=== PATIENT | female | born 2000 | race African-American/Black ===

== ENCOUNTER 2020-06-30 04:33 | Observation (INO) | payer BC, SELFPAY ==
[2020-06-30] VITALS (13 sets, daily range): BP systolic 107–164; BP diastolic 70–114; PULSE 101–125; RESP 17–28; TEMP 36.6–36.7; O2SAT 94–100; BMI 46.5
--- NOTE | ~2020-06-30 | XR_ITS ---
EXAMINATION: XR chest 1V portable DATE: 06/30/2020 04:58 INDICATION: Chest pain and shortness of breath. TECHNIQUE: frontal view of the chest was obtained. COMPARISON: None FINDINGS: The lungs are clear with no focal airspace opacities, pulmonary edema, pleural effusion or pneumothor ax. The cardiomediastinal silhouette is normal. Visualized bones and soft tissues are unremarkable. IMPRESSION: 1. No acute cardiopulmonary disease. Reviewed, dictated and finalized at location A.
--- NOTE | 2020-06-30 04:42 | ED.SOB ---
HPI - SOB/Dyspnea General Chief Complaint: Shortness of Breath/Dyspnea <Roberto Deal MD - Last Filed: 06/30/20 19:03> Stated Complaint: Shortness of breath <Roberto Deal MD - Last Filed: 06/30/20 19:03> Time Seen by Provider: 06/30/20 04:38 <Roberto Deal MD - Last Filed: 06/30/20 19:03> History of Present Illness HPI Narrative: Shortness of breath since last night. Feels like there is air trapped in her chest. This is associated with substernal chest pain with inspiration. She has asthma, bbut says this is not typical of her asthma. No fever. <Roberto Deal MD - Last Filed: 06/30/20 19:03> Related Data Home Medications: Home Medications Medication Instructions Recorded Confirmed albuterol sulfate 4 puff INHALATION Q4H PRN 06/30/20 06/30/20 norgestimate-ethinyl estradiol 1 tablet PO DAILY 06/30/20 06/30/20 [Tri-Sprintec (28)] <Roberto Deal MD - Last Filed: 06/30/20 19:03> Allergies/Adverse Reactions: Allergies Allergy/AdvReac Type Severity Reaction Status Date / Time Fish Containing Products Allergy Hives Verified 06/30/20 11:26 salmon oil Allergy Swelling Verified 06/30/20 05:34 <Roberto Deal MD - Last Filed: 06/30/20 19:03> Review of Systems Review of Systems: All systems reviewed & are unremarkable except as noted in HPI and below <Roberto Deal MD - Last Filed: 06/30/20 19:03> Constitutional: Constitutional: Denies chills and Denies fever(s) <Roberto Deal MD - Last Filed: 06/30/20 19:03> ENT: Denies sore throat <Roberto Deal MD - Last Filed: 06/30/20 19:03> Cardiovascular: Cardiovascular: Reports chest pain <Roberto Deal MD - Last Filed: 06/30/20 19:03> Respiratory: Respiratory: Reports dyspnea and Reports wheezing <Roberto Deal MD - Last Filed: 06/30/20 19:03> Gastrointestinal: Gastrointestinal: Denies abdominal pain and Denies nausea <Roberto Deal MD - Last Filed: 06/30/20 19:03> Musculoskeletal: Musculoskeletal: Denies back pain <Roberto Deal MD - Last Filed: 06/30/20 19:03> Neurologic: Denies weakness <Roberto Deal MD - Last Filed: 06/30/20 19:03> [facility] Past Medical History Medical History: Medical History (Updated 06/30/20 @ 13:04 by Felicitas Condon NP) Asthma <Roberto Deal MD - Last Filed: 06/30/20 19:03> Surgical History Surgical History: Surgical History (Updated 06/30/20 @ 13:01 by Felicitas Condon NP) [place] teeth extracted <Roberto Deal MD - Last Filed: 06/30/20 19:03> Social History Social History: Social History (Updated 06/30/20 @ 13:03 by Felicitas Condon NP) Social History: she is taking classes at [employer] for psychology degree. She has her own place. 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 She is single and has no children. She is a lifelong nonsmoker. She does not use marijuana or illicit drugs. She does not use alcohol either. Her mother is her durable power real estate attorney for healthcare. The patient wishes to be a full code. Her mother is Beatriz sutton. Smoking status: Never smoker Alcohol intake: former Substance use: never Gender identity (if verbalized by the patient): Female Spiritual care concerns: No <Roberto Deal MD - Last Filed: 06/30/20 19:03> Exam Const: General: alert <Roberto Deal MD - Last Filed: 06/30/20 19:03> Orientation/consciousness: patient oriented x3 <Roberto Deal MD - Last Filed: 06/30/20 19:03> Other: Mild distress <Roberto Deal MD - Last Filed: 06/30/20 19:03> HENMT: Head: normal to inspection <Roberto Deal MD - Last Filed: 06/30/20 19:03> Chest: Chest palpation & inspection: normal inspection of the chest <Roberto Deal MD - Last Filed: 06/30/20 19:03> Resp: Effort & Inspection: labored and tachypneic <Roberto Deal MD - Last Filed: 06/18
[2020-06-30] MEDS: methylPREDNISolone SOD SUCC 125 MG VIAL IV PUSH ×2 (04:51→07:46)
[2020-06-30] MEDS: IPRATROPIUM BR 0.02% INH SOLN 0.5 MG/2.5 ML VIAL 1 MG INHALATION (04:54)
[2020-06-30] MEDS: ALBUTEROL SULFATE NEB 2.5 MG/0.5 ML INH 10 MG INHALATION ×2 (04:54→06:25)
[2020-06-30] MEDS: MAGNESIUM SULF 2 GM/WATER 50ML 2 GM/50 ML BAG IVPB (05:03)
[2020-06-30 06:32] LABS: Basophils Absolute Auto 0.1 K/mm3 (0.0-0.1); Basophils Percent Auto 0.6 % (0.2-1.2); Eosinophils Absolute Auto 0.5 K/mm3 (0-0.3); Eosinophils Percent Auto 6.9 % (0-4.4); Hematocrit 43.6 % (37.0-47.0); Hemoglobin 14.3 g/dL (12.0-15.0); Immature Granulocyte Absolute 0.02 K/mm3 (0.00-0.031); Immature Granulocyte Percent A 0.3 % (0-0.5); Lymphocytes Absolute Auto 3.76 K/mm3 (0.9-3.2); Lymphocytes Percent Auto 48.8 % (18.3-44.2); Mean Corpuscular HGB Conc 32.8 g/dl (32-36); Mean Corpuscular Hemoglobin 27.3 pg (26-34); Mean Corpuscular Volume 83.2 fl (80-100); Mean Platelet Volume 10.1 fl (7.4-10.4); Monocytes Absolute Auto 0.5 K/mm3 (0.1-0.6); Monocytes Percent Auto 6.1 % (2.6-8.5); Neutrophils Absolute Auto 2.9 K/mm3 (1.3-6.7); Neutrophils Percent Auto 37.3 % (45.5-73.1); Platelet Count Result 332 k/mm3 (150-375); Red Blood Count 5.24 M/mm3 (4.2-5.4); Red Cell Distribution Width 14.5 % (11.5-14.5); White Blood Count 7.7 K/mm3 (4.5-10.0)
[2020-06-30] MEDS: SODIUM CHLORIDE 0.9% IV 1,000 ML 999 ML IV CONT (06:34)
[2020-06-30 06:43] LABS: Anion Gap 9 mmol/L (8-16); Blood Urea Nitrogen 11 mg/dL (7-17); Carbon Dioxide 25 mmol/L (22-30); Chloride 105 mmol/L (98-107); Estimated Glomerular Filt Rate > 60; Glucose 107 mg/dL (65-105); Sodium 139 mmol/L (137-145)
--- NOTE | 2020-06-30 11:10 | ADMGEN ---
This patient, Shamir Park, was admitted to [facility] Surg Room 311-01. Patient/family oriented to hospital policies and general routines including ID bracelet, bed and alarms, visiting hours, pain management, procedures, bathroom and other care routines, personal items, smoking policy, room service/diet, and visiting hours. Valuables list has been completed. Information on how to activate the Rapid Response Team has been discussed. Patient/Family are encouraged to report perceived risks to care and to ask questions if they do not understand what they are told or what they should do.
--- NOTE | 2020-06-30 12:40 | PM.IMHP ---
H&P: HPI History of Present Illness Date/Time: 06/30/20 12:40 Chief complaint: asthma exacerbation Narrative: Shamir Park is a 20 year old female Who has a past medical history of asthma. the patient uses inhalers at home. Her asthma is triggered by weather, stress, and the environment. The patient stated she woke up this morning with shortness of breath. She felt like she was wheezing. She used her inhaler but it did help. She is also having a lot of acid reflux as well. She said she has never been hospitalized for her asthma in the past. Since is been raining a lot she has been more short of breath.She stated that she felt that she had airtrapping. She did have a nebulizer treatment in the emergency room, Solu-Medrol, and IV magnesium. She stated that she is feeling much better. she denies any fever or chills. No nausea vomiting or diarrhea. Her chest x-ray was negative. She does complain of having some acid reflux. Date of service is 06/30/2020. It took me approximately 35 minutes to review her chart and discussed her plan of care. Review of Systems Review of Systems: All systems reviewed & are unremarkable except as noted in HPI and below Constitutional: Constitutional: Reports as per HPI and Reports no additional constitutional complaints Eyes: Eyes: Reports as per HPI and Reports no additional eye complaints ENT: Reports system reviewed and no additional complaints, except as documented and Reports Normal hearing present Cardiovascular: Cardiovascular: Reports no additional cardiovascular complaints Respiratory: Respiratory: Reports no additional respiratory complaints and Reports no additional respiratory complaints Gastrointestinal: Gastrointestinal: Reports as per HPI and Reports no additional gastrointestinal complaints Musculoskeletal: Musculoskeletal: Reports no additional musculoskeletal complaints Integumentary/Breasts: Skin/Breast: Reports system reviewed and no additional complaints, except as docu and Reports as per HPI Neurologic: Reports system reviewed and no additional complaints, except as documented, Reports as per HPI and Reports Normal hearing present Psychiatric: Psychiatric: Reports no additional psychiatric complaints and Reports as per HPI Endocrine: Endocrine: Reports no additional endocrine complaints Hematologic/Lymphatic: Hematologic/Lymphatic: Reports no additional hematologic/lymphatic complaints Allergic/Immunologic: Allergic/Immunologic: Reports no additional allergic/immunologic complaints [facility] Past Medical History Medical History (Updated 06/30/20 @ 13:04 by Felicitas Condon NP) Asthma Surgical History Surgical History (Updated 06/30/20 @ 13:01 by Felicitas Condon NP) [place] teeth extracted Social History Social History (Updated 06/30/20 @ 13:03 by Felicitas Condon NP) Social History: she is taking classes at [employer] for psychology degree. She has her own place. 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 She is a lifelong nonsmoker. She does not use marijuana or illicit drugs. She does not use alcohol either. Her mother is her durable power scoop driver for healthcare. The patient wishes to be a full code. Her mother is Beatriz sutton. Smoking status: Never smoker Alcohol intake: former Substance use: never Gender identity (if verbalized by the patient): Female Spiritual care concerns: No Meds Home Medications and Allergies Home Medications Medication Instructions Recorded Confirmed Type albuterol sulfate 4 puff INHALATION Q4H PRN 06/30/20 06/30/20 History norgestimate-ethinyl estradiol 1 tablet PO DAILY 06/30/20 06/30/20 History [Tri-Sprintec (28)] prednisone 60 mg PO DAILY 4 Days #12 tablet 06/30/20 Rx Allergies Allergy/AdvReac Type Severity Reaction Status Date / Time Fish Containing Products Allergy Hives Verified 06/30/20 11:26 s
[2020-06-30] MEDS: IPRATROPIUM BR 0.02% INH SOLN 0.5 MG/2.5 ML VIAL INHALATION ×2 (13:39→20:04)
[2020-06-30] MEDS: methylPREDNISolone SOD SUCC 125 MG VIAL 80 MG IV PUSH ×2 (17:52→23:45)
[2020-06-30] MEDS: FAMOTIDINE 20 MG TABLET PO (20:17)
[2020-07-01] VITALS (7 sets, daily range): BP systolic 104–113; BP diastolic 64–69; PULSE 80–114; RESP 16–20; TEMP 36.2–36.3; O2SAT 96–98
[2020-07-01] MEDS: IPRATROPIUM BR 0.02% INH SOLN 0.5 MG/2.5 ML VIAL INHALATION ×2 (03:22→08:56)
[2020-07-01 05:55] LABS: Basophils Percent Auto 0.2 % (0.2-1.2); Hematocrit 42.1 % (37.0-47.0); Hemoglobin 13.9 g/dL (12.0-15.0); Immature Granulocyte Absolute 0.06 K/mm3 (0.00-0.031); Immature Granulocyte Percent A 0.5 % (0-0.5); Lymphocytes Percent Auto 13.9 % (18.3-44.2); Mean Corpuscular Hemoglobin 27.8 pg (26-34); Mean Corpuscular Volume 84.2 fl (80-100); Mean Platelet Volume 9.8 fl (7.4-10.4); Monocytes Absolute Auto 0.3 K/mm3 (0.1-0.6); Monocytes Percent Auto 1.9 % (2.6-8.5); Neutrophils Absolute Auto 10.8 K/mm3 (1.3-6.7); Neutrophils Percent Auto 83.5 % (45.5-73.1); Platelet Count Result 322 k/mm3 (150-375); Red Cell Distribution Width 15.1 % (11.5-14.5)
[2020-07-01] MEDS: methylPREDNISolone SOD SUCC 125 MG VIAL 80 MG IV PUSH ×2 (05:56→12:50)
[2020-07-01 06:19] LABS: Anion Gap 8 mmol/L (8-16); Blood Urea Nitrogen 10 mg/dL (7-17); Calcium 9.4 mg/dL (8.4-10.2); Carbon Dioxide 21 mmol/L (22-30); Chloride 107 mmol/L (98-107); Estimated CRCL calculation 168 ml/min; Estimated Glomerular Filt Rate > 60; Glucose 147 mg/dL (65-105); Potassium 4.2 mmol/L (3.4-5.0); Sodium 136 mmol/L (137-145)
[2020-07-01] MEDS: FAMOTIDINE 20 MG TABLET PO (08:25)
--- NOTE | 2020-07-01 12:42 | PM.DS ---
DS: Admitting Diagnosis Admitting Diagnosis Admitting Diagnosis: asthma exacerbation DS: Discharge Diagnosis Discharge Diagnosis (1) Asthma with exacerbation: Qualifiers: Asthma persistence: intermittent Asthma severity: mild Qualified Code(s): J45.21 - Mild intermittent asthma with (acute) exacerbation Code(s): J45.901 - Unspecified asthma with (acute) exacerbation Status: Acute Assessment and Plan: Typically uses albuterol inhaler 2 times per week. She was moving this week and was exposed to a lot of dust and irritants and she believes this is what triggered her increased SOB and wheezing. She was given nebulized albuterol, IV solumedrol and IV magnesium. She was quickly weaned from 2L O2 to room air. She will continue a PO Prednisone taper as an outpatient. I did not feel that she required an inhaled corticosteroid at this time as her symptoms are intermittent but this should be monitored by PCP and she was instructed to follow up in 1 week. She may benefit from referral to emergency doctor or welder setter electron beam machine at discretion of PCP. (2) Tachycardia: Code(s): R00.0 - Tachycardia, unspecified Status: Acute Assessment and Plan: [place] to be secondary to nebulized albuterol treatments. She remained asymptomatic and had no signs or symptoms of infection. She was transitioned to xopenex and she remained mildly tachycardic but improved. (3) GERD with stricture: Code(s): K21.9 - Gastro-esophageal reflux disease without esophagitis; K22.2 - Esophageal obstruction Status: Acute Assessment and Plan: We discussed lifestyle and dietary changes to alleviate symptoms. She was given PO Pepcid. DS: Summary Hospital Course Reason for hospitalization: Shortness of breath Hospital Course: Date of admission: 06/30/2020 Date of discharge: 07/01/2020 Shamir Park is a 20 year old female with a history of mild intermittent asthma who presented to the emergency department on 06/30/2020 with complaints of shortness of breath, chest tightness, and wheezing. She used her albuterol inhaler with no relief. At presentation, she was tachypneic and tachycardic, WBC 7.7, and CXR showed no acute cardiopulmonary disease. In the ED, she was given nebulized albuterol, IV steroids, and IV magnesium. She was admitted to the hospitalist service for further evaluation and management. She continued receiving nebulizer treatments and steroids. Upon my evaluation, she was feeling significantly improved and had no shortness of breath. Her lungs were clear to auscultation and she did not have any wheezing. She was anxious to return home. She was transitioned to PO prednisone which she will continue as an outpatient. She did have tachycardia which was felt to be secondary to albuterol and she developed very mild leukocytosis which was felt to be secondary to steroids. She had no evidence of infection and was feeling well. Given her overall improvement and improved lung exam, she was felt to no longer require inpatient care. We discussed worrisome signs and symptoms for which to return and importance of proper follow up. She was discharged home in hemodynamically stable condition on 07/01/2020. Status at Discharge Functional status at discharge: independent ambulation Overall status at discharge: patient is back to baseline Time Spent with Patient Time attestation: Total time spent providing and/or coordinating discharge services:42 minutes Time spent: Greater than 30 minutes Exam Narrative: Exam Narrative: Ms. Park is a well-nourished 20-year-old female who is lying supine in bed. She appears comfortable and is in no acute respiratory distress. HR 86, BP 104/64, R 16 T 97.4?, 98% on room air Neuro: awake, alert and oriented x4, speech clear, no focal neuro deficits noted HEENMT: normocephalic, atraumatic, EOMI, sclerae anicteric, moist oral mucosa, tongue midline, nares patent Neck: supple, no lymphadenopathy
[2020-07-01] MEDS: ACETAMINOPHEN 325 MG TABLET 650 MG PO (14:23)
== END 2020-07-01 15:35 | disposition home or self-care (01) ==
LOC: ANHED 08:19 → ANH3MEDSUR 09:44
PROVIDERS: Emergency Medicine; Nurse Practitioner; Admitting Provider Family Medicine; Emergency Provider Emergency Medicine; Visit Provider Physician Assistant
DX: J45.21 Mild intermittent asthma with (acute) exacerbation (principal); K21.9 Gastro-esophageal reflux disease without esophagitis; K22.2 Esophageal obstruction; R00.0 Tachycardia, unspecified
CPT/HCPCS: 36415; 71045; 80048; 85025; 94640; 96361; 96365; 96374; 96375; 96376; 99285; A9270; G0378; G0379; J2930; J3475; J7030

== ENCOUNTER 2021-07-25 03:04 | Emergency (ER) | payer BC, SELFPAY ==
[2021-07-25] VITALS (7 sets, daily range): BP systolic 125–134; BP diastolic 82–92; PULSE 83–100; RESP 14–22; TEMP 36.6; O2SAT 98–99
--- NOTE | ~2021-07-25 | XR_ITS ---
EXAMINATION: XR chest 1V portable DATE: 07/25/2021 04:02 INDICATION: Cough. TECHNIQUE: A single frontal view of the chest was obtained. COMPARISON: Chest single view 06/30/2020 FINDINGS: The chest demonstrates clear lungs without pneumonia, pleural effusion, or pneumothorax. Th e heart size is normal. IMPRESSION: 1. No acute cardiopulmonary disease. Reviewed, dictated and finalized at location A.
--- NOTE | 2021-07-25 03:15 | ED.ASTHMA ---
HPI - Asthma General Chief Complaint: Asthma Stated Complaint: asthma attack Time Seen by Provider: 07/25/21 03:05 Source: RN notes reviewed History of Present Illness HPI Narrative: Patient presents to emergency department from home for asthma. Patient states she awoke feeling short of breath this evening she states that she has had wheezing throughout the bilateral lung maloney states she has a history of asthma and felt fine prior to going to bed tonight she states she ran out of her inhaler at home she denies any fevers or chills chest pain abdominal pain nausea vomiting or any other symptom Related Data Home Medications Medication Instructions Recorded Confirmed albuterol sulfate 4 puff INHALATION Q4H PRN 06/30/20 06/30/20 norgestimate-ethinyl estradiol 1 tablet PO DAILY 06/30/20 06/30/20 [Tri-Sprintec (28)] Allergies Allergy/AdvReac Type Severity Reaction Status Date / Time Fish Containing Products Allergy Hives Verified 07/25/21 04:27 salmon oil Allergy Swelling Verified 07/25/21 04:27 Review of Systems Review of Systems: Gen.: Denies fevers or chills ENT: Denies congestion Respiratory: See HPI CV: Denies chest pain or palpitations GI: Denies abdominal pain nausea, emesis or diarrhea Musculoskeletal: Denies back pain or muscle pain Neuro: Denies numbness, tingling, weakness or focal weakness Skin: Denies rash Except as documented, all other systems reviewed and negative [facility] Past Medical History Medical History Asthma Surgical History Surgical History (Updated 06/30/20 @ 13:01 by Felicitas Condon NP) [place] teeth extracted Social History Social History Social History: she is taking classes at [employer] for psychology degree. She has her own place. 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 She is a lifelong nonsmoker. She does not use marijuana or illicit drugs. She does not use alcohol either. Her mother is her durable power attorney lawyer for healthcare. The patient wishes to be a full code. Her mother is Beatriz sutton. Smoking status: Never smoker Alcohol intake: former Substance use: never Gender identity (if verbalized by the patient): Female Spiritual care concerns: No Exam Narrative: APPEARANCE: Mild respiratory distress nontoxic, resting in bed HEENT: Normocephalic, atraumatic OMM RESPIRATORY: Mild respiratory distress wheezing throughout the bilateral lung maloney with decreased breath sounds in the bases no rhonchi CARDIOVASCULAR: Regular rate and rhythm without murmurs rubs or gallops. ABDOMINAL: Soft, nontender, nondistended, no rebound or guarding MUSCULOSKELETAl: Moves all extremities. No clubbing, cyanosis or edema. Bilateral calves soft and nontender NEURO: Awake and alert. Following commands, speech normal, no focal deficits SKIN:: Warm, dry. Normal Color PSYCHIATRIC: Normal affect/mood, Course Course Emergency Course: Patient feeling much better following breathing treatments. Repeat lung exam clear to auscultation bilaterally Discussed with patient results of workup and diagnosis. Discussed need for follow-up with primary care, proper use of medication, and reasons to return to the emergency department. Patient understands and agrees to current treatment plan Vital Signs Vital signs: Vital Signs Temperature 97.9 F 07/25/21 03:08 Pulse Rate 89 07/25/21 03:08 Respiratory Rate 20 07/25/21 03:08 Blood Pressure 134/92 H 07/25/21 03:08 Pulse Oximetry 99 07/25/21 03:08 Temperature 97.9 F 07/25/21 03:08 Pulse Rate 87 07/25/21 04:19 Respiratory Rate 18 07/25/21 04:19 Blood Pressure 134/92 H 07/25/21 03:08 Pulse Oximetry 98 07/25/21 03:55 MDM - Asthma Imaging Data Attestation: I personally reviewed and interpreted this imaging study as foll
[2021-07-25] MEDS: IPRATROPIUM BR 0.02% INH SOLN 0.5 MG/2.5 ML VIAL INHALATION ×2 (03:28→04:10)
[2021-07-25] MEDS: ALBUTEROL SULFATE NEB 2.5 MG/0.5 ML INH 5 MG INHALATION ×2 (03:28→04:10)
[2021-07-25] MEDS: predniSONE 20 MG TABLET 60 MG PO (03:53)
== END 2021-07-25 04:48 | disposition home or self-care (01) ==
PROVIDERS: Emergency Provider Emergency Medicine
DX: J45.901 Unspecified asthma with (acute) exacerbation (principal)
CPT/HCPCS: 71045; 94640; 99284; J7512

== ENCOUNTER 2021-10-27 15:20 | Emergency (ER) | payer BC, SELFPAY ==
[2021-10-27 15:33] VITALS: BP 147/90; PULSE 87; RESP 17; TEMP 36.1; O2SAT 100
--- NOTE | 2021-10-27 16:53 | PC.NURSE ---
pt leaving at this time. pt was triaged. will return if symptoms worsen or change.
== END 2021-10-28 04:49 | disposition left against medical advice (07) ==
DX: L50.9 Urticaria, unspecified (principal)
CPT/HCPCS: 99199

== ENCOUNTER 2021-11-19 20:24 | Emergency (ER) | payer BC, SELFPAY ==
--- NOTE | ~2021-11-19 | XR_ITS ---
EXAMINATION: XR chest 1V portable DATE: 11/19/2021 23:37 INDICATION: Shortness of breath. Asthma. COVID exposure. TECHNIQUE: frontal view of the chest was obtained. COMPARISON: Chest radiograph dated 08/04/21 FINDINGS: The lungs remain clear with no focal airspace opacities, pulmonary edema, pleural effusion or pneumot horax. The cardiomediastinal silhouette is normal. Visualized bones and soft tissues are unremarkable . IMPRESSION: 1. Normal chest radiograph. Reviewed, dictated and finalized at location B. ER HEAD IMPRESSION: 1. Normal chest radiograph.
[2021-11-19 20:31] VITALS: BP 138/87; PULSE 105; RESP 20; TEMP 36.5; O2SAT 99
--- NOTE | 2021-11-19 23:21 | ED.GENADULT ---
HPI - General Adult General Chief complaint: Upper Respiratory Infection Stated complaint: Asthma acting up,loss of taste and smell Time Seen by Provider: 11/19/21 22:41 Source: patient and RN notes reviewed Limitations: no limitations History of Present Illness HPI narrative: 21-year-old female with past medical history of Asthma presents to the emergency department for evaluation of Covid symptoms after Covid exposure. Patient is experiencing some cough and shortness of breath. Patient is also experiencing headache and body aches. Patient is not vaccinated. Patient did have positive exposure through her work where there are multiple people that have Covid. Related Data Home Medications Medication Instructions Recorded Confirmed albuterol sulfate 4 puff INHALATION Q4H PRN 06/30/20 06/30/20 Trulicity 11/19/21 Allergies Allergy/AdvReac Type Severity Reaction Status Date / Time Fish Containing Products Allergy Hives Verified 11/19/21 23:45 salmon oil Allergy Swelling Verified 11/19/21 23:45 Review of Systems Review of Systems: CONSTITUTIONAL: Subjective fever and chills. EYES: Denies visual changes, redness, or discharge. ENT: Denies rhinorrhea, congestion, sore throat, or otalgia. CARDIOVASCULAR: Denies chest pain but does have lung tightness RESPIRATORY: Does have cough and shortness of breath GASTROINTESTINAL: Denies abdominal pain, nausea, vomiting, or diarrhea. GENITOURINARY: Denies dysuria or hematuria. SKIN: Denies rash or itching. MUSCULOSKELETAL: Denies back pain, joint pain. Does report body aches and myalgia NEUROLOGIC: Denies headache, numbness, or weakness. PSYCHIATRIC: Denies anxiety or depression. COUNT INCLUDES THE [facility] Past Medical History Medical History Asthma Surgical History Surgical History (Updated 06/30/20 @ 13:01 by Felicitas Condon NP) [place] teeth extracted Social History Social History Social History: she is taking classes at [employer] for psychology degree. She has her own place. 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 She is a lifelong nonsmoker. She does not use marijuana or illicit drugs. She does not use alcohol either. Her mother is her durable power insurance attorney for healthcare. The patient wishes to be a full code. Her mother is Beatriz sutton. Smoking status: Never smoker Alcohol intake: former Substance use: never Gender identity (if verbalized by the patient): Female Spiritual care concerns: No Exam Narrative: APPEARANCE: Well appearing, no pain in distress, well-nourished. HEAD: normocephalic, atraumatic. EYES: PERRLA/EOMI, conjunctivae clear. NECK: Supple. No adenopathy, no masses. RESPIRATORY: Airway patent, respirations nonlabored. Clear to auscultation bilaterally, no rales, rhonchi, wheezing. CARDIOVASCULAR: Regular rate and rhythm without murmurs rubs or gallops. ABDOMINAL: Soft, nontender, nondistended, normal bowel sounds MUSCULOSKELETAL: Moves all extremities. Strength/ROM intact, No edema, No calf tenderness. NEURO: Alert. Cranial nerves II through XII intact. Good gait. Good coordination SKIN: Warm, dry. Normal Color PSYCHIATRIC: Normal affect/mood. Course Vital Signs Vital signs: Vital Signs Temperature 97.7 F 11/19/21 20:31 Pulse Rate 105 H 11/19/21 20:31 Respiratory Rate 20 11/19/21 20:31 Blood Pressure 138/87 11/19/21 20:31 Pulse Oximetry 99 11/19/21 20:31 Temperature 98.2 F 11/19/21 23:46 Pulse Rate 99 11/19/21 23:46 Respiratory Rate 20 11/19/21 20:31 Blood Pressure 139/68 11/19/21 23:46 Pulse Oximetry 99 11/19/21 23:46 Medical Decision Making Vital Signs Vital Signs: Vital Signs Temperature 97.7 F 11/19/21 20:31 Pulse Rate 105 H 11/19/21 20:31 Respiratory Rate 20 11/19/21 20:31 Blood Pressure 138/87
[2021-11-19] MEDS: IBUPROFEN 400 MG TABLET PO (23:27)
[2021-11-19] MEDS: ACETAMINOPHEN 325 MG TABLET 650 MG PO (23:27)
[2021-11-19 23:46] VITALS: BP 139/68; PULSE 99; TEMP 36.8; O2SAT 99
[2021-11-20 21:22] LABS: SARS-CoV-2 RNA PCR Positive
== END 2021-11-20 00:03 | disposition home or self-care (01) ==
PROVIDERS: Emergency Provider Emergency Medicine
DX: U07.1 COVID-19 (principal); J45.909 Unspecified asthma, uncomplicated
CPT/HCPCS: 71045; 87804; 99283; A9270; C9803; U0003; U0005